=== PATIENT | female | born 1985 | race Caucasian/White ===

== ENCOUNTER → 2017-07-17 | Outpatient (CLI) | payer OTHER ==
[2015-11-09 16:17] VITALS: BP 128/84
[~2017-07-17] MED LIST: CYAN10002 IM; CYCL5TAB PO; DILT30TA PO; DOXY100T PO; GABA-586 PO; HYDR-2758 PO; HYDR200T71 PO; IBUP800T19 PO; IVAB5TAB PO; MELO15TA23 PO; NITR4.1S TL; ONDA4TAB12 PO
--- NOTE | 2017-07-17 12:20 | RAD ---
DATE: 07/17/2017 EXAM: MAMMO KENJI HUBBARD, BREAST LEFT HISTORY: Left breast lump COMPARISON: 05/12/2016 This study was interpreted with the benefit of Computerized Aided Detection (CAD). The breast parenchyma shows scattered fibroglandular densities. Breast parenchyma level B. FINDINGS: 2-D routine and implant exclusion views were obtained in CC and MLO projections. 3-D implant exclusion views were also obtained. Bilateral breast implants are again noted. No new or enlarging breast densities are seen. BBs were placed over the areas of reported palpable concern at the 12:00 location in the left breast and no underlying mammographic abnormality is seen. Benign type calcifications are present. No suspicious microcalcifications have developed. Left breast ultrasound, 07/17/2017: A targeted ultrasound exam was performed of the areas of palpable concern near the 12:00 location. Heterogeneous fibroglandular shadows are present. No mass is identified. IMPRESSION: 1. There is no mammographic evidence of malignancy in either breast. 2. There is no sonographic correlate for the areas of reported palpable concern. Clinical surveillance is suggested. BI-RADS CATEGORY: 1 NEGATIVE RECOMMENDED FOLLOW-UP: CLIN FOLLOW UP IMAGING CLINICALLY INDICATED PQRS compliance statement: Patient information was entered into a reminder system with a target due date for the next mammogram. Mammography is a sensitive method for finding small breast cancers, but it does not detect them all and is not a substitute for careful clinical examination. A negative mammogram does not negate a clinically suspicious finding and should not result in delay in biopsying a clinically suspicious abnormality. "Our facility is accredited by the [employer] Mammography Program."
== END | disposition home or self-care (01) ==
LOC: MAMMO 08:32
PROVIDERS: ATTEND Nurse Practitioner Family
DX: R92.8 Other abnormal and inconclusive findings on diagnostic imaging of breast (principal)
CPT/HCPCS: 76641; 77066; G0279; 77062

== ENCOUNTER → 2017-10-01 | Outpatient (CLI) | payer OTHER ==
[2015-11-09 16:17] VITALS: BP 128/84
[~2017-10-01] MED LIST changes: +IOHEXOL 240 MG/ML 50ML VIAL. ONE; +IOHEXOL 240 MG/ML 50ML VIAL. PO ONE; +IOHEXOL 300 MG/ML 75 ML VIAL. IV ONE; -NITR4.1S TL; +NITR4.1S2 TL
--- NOTE | 2017-10-01 10:24 | RAD ---
PQRS Compliance Statement: One or more of the following individualized dose reduction techniques were utilized for this examination: 1. Automated exposure control 2. Adjustment of the mA and/or kV according to patient size 3. Use of iterative reconstruction technique CT ABD PELV W/ORAL IV CONTRAST Clinical Indication: LLQ PAIN, HX OF DIVERTICULITIS AND LUPUS Comparison: CT abdomen and pelvis without contrast, December 17, 2014. Technique: Helical CT imaging of the abdomen and pelvis is performed after 75 cc Omnipaque 300 IV contrast. Oral contrast also given. Findings: There are bilateral breast implants, partially seen. Cardiac size is normal. Lungs are clear. Liver, gallbladder, spleen, pancreas, adrenal glands, abdominal aorta, and kidneys are normal. Stomach unremarkable. There is no dilated small bowel. There is diverticulitis of the distal descending colon. There is no perforation or peridiverticular abscess. There is moderate surrounding inflammation. There is diverticulosis throughout the colon. The appendix is normal. There is no colon wall thickening. No abdominal adenopathy or free fluid. Urinary bladder is normal. Hysterectomy. Trace pelvic free fluid. Bones unremarkable. IMPRESSION: 1. Diverticulitis of the distal descending colon. No perforation or peridiverticular abscess. 2. Trace pelvic free fluid. Electronically signed by: Ketan Fonseca MD (10/01/2017 10:20 AM) [id number]
== END | disposition home or self-care (01) ==
LOC: CT 08:43
PROVIDERS: ATTEND Nurse Practitioner Family
DX: K57.32 Diverticulitis of large intestine without perforation or abscess without bleeding (principal); N18.9 Chronic kidney disease, unspecified; I50.9 Heart failure, unspecified; E03.9 Hypothyroidism, unspecified; Z80.3 Family history of malignant neoplasm of breast; Z90.710 Acquired absence of both cervix and uterus; Z85.41 Personal history of malignant neoplasm of cervix uteri; Z85.89 Personal history of malignant neoplasm of other organs and systems
CPT/HCPCS: 74177; Q9966; Q9967

== ENCOUNTER → 2018-05-06 | Outpatient (CLI) | payer BC ==
[2015-11-09 16:17] VITALS: BP 128/84
[~2018-05-06] MED LIST changes: +HYDR-2155 PO; -HYDR-2758 PO; -IOHEXOL 240 MG/ML 50ML VIAL. PO ONE
--- NOTE | 2018-05-06 18:22 | RAD ---
PQRS Compliance statement: One or more of the following individualized dose reduction techniques were utilized for this examination: 1. Automated exposure control. 2. Adjustment of the mA and/or kV according to patient size. 3. Use of iterative reconstruction technique. Indication:INCREASINGLY WORSE ABDOMINAL PAIN WITH NAUSEA AND DIARRHEA. RECENT BOWEL RESECTION IN FEBRUARY DUE TO DIVERTICULITIS. ORAL AND 75MLS OMNI 300 IV CONTRAST TECHNIQUE: CT abdomen and pelvis with IV contrast with multiplanar reformats. COMPARISON: 10/01/2017 FINDINGS: Partially visualized bilateral breast implants. Heart is normal in size. No pericardial or pleural effusion. Clear lung bases. Liver, spleen, gallbladder, pancreas, adrenals and kidneys are normal limits. No enlarged retroperitoneal or pelvic adenopathy. No free pelvic fluid or ascites. Status post partial bowel resection with anastomotic sutures in the sigmoid colon. No bowel obstruction. Scattered colonic diverticulosis. Normal appendix. Status post hysterectomy. Urinary bladder is then normal limits. No pneumoperitoneum. No suspicious bony lesion. IMPRESSION: No bowel obstruction. Diffuse colonic diverticulosis without evidence right is. Electronically signed by: Adilson Garrison DO (05/06/2018 6:20 PM) [facility]
== END | disposition home or self-care (01) ==
LOC: CT 16:36
PROVIDERS: ATTEND Nurse Practitioner Family
DX: K57.30 Diverticulosis of large intestine without perforation or abscess without bleeding (principal); Z90.710 Acquired absence of both cervix and uterus; Z90.49 Acquired absence of other specified parts of digestive tract
CPT/HCPCS: 74177; Q9967

== ENCOUNTER 2020-08-14 22:44 | Emergency (ER) | payer BC ==
[~2020-08-14] VITALS: Ht 160 cm; Wt 90.9 kg
[~2020-08-14 22:44] MED LIST changes: -IOHEXOL 240 MG/ML 50ML VIAL. ONE; -IOHEXOL 300 MG/ML 75 ML VIAL. IV ONE
[2020-08-14 22:55] VITALS: BP 110/85
--- NOTE | 2020-08-14 22:58 | PHYS DOC ---
Past History Past Medical History: Cancer, Migraines, Other Past Surgical History: Hysterectomy Smoking: Non-smoker Alcohol Use: Rarely Drug Use: None General Adult EDM: Chief Complaint: FOOT INJURY PAIN HPI: HPI: ".. I slipped coming out of the shower.. jamed up this Rt. foot and little toe.." Patient is a 35 year old female who presents with above hx and stabbing type injury to right foot toe. Patient has obvious edema and contusion to right foot. Distal sensation is equal to the left foot. Capillary refill is equal to left foot. Patient denies other injury. Is stable health.. Follow-up of primary care. No recent travel. No specific ill contacts. Review of Systems: Review of Systems: Constitutional: Denies fever or chills Eyes: Denies change in visual acuity HENT: Denies nasal congestion or sore throat Respiratory: Denies cough or shortness of breath Cardiovascular: Denies chest pain or edema GI: Denies abdominal pain, nausea, vomiting, bloody stools or diarrhea : Denies dysuria Musculoskeletal: Complains of injury to right foot and fifth little toe Integument: Denies rash Neurologic: Denies headache, focal weakness or sensory changes Endocrine: Denies polyuria or polydipsia Lymphatic: Denies swollen glands Psychiatric: Denies depression or anxiety Family History: Family History: Noncontributory presentation Current Medications: Current Meds: See nursing for home meds Allergies: Allergies: Allergies Coded Allergies Type Severity Reaction Last Updated Verified cephalexin Allergy Unknown 10/22/15 No Physical Exam: PE: Constitutional: In acute distress, non-toxic appearance. [] HENT: Normocephalic, atraumatic, bilateral external ears normal, oropharynx moist, no oral exudates, nose normal. [] Eyes: PERRLA, EOMI, conjunctiva normal, no discharge. [] Neck: Normal range of motion, no tenderness, supple, no stridor. [] Cardiovascular:Heart rate regular rhythm, no murmur [] Lungs & Thorax: Bilateral breath sounds to apex with a few crackles and wheezes on auscultation [] Abdomen: Bowel sounds normal, soft, no tenderness, no masses, no pulsatile masses. Obese Skin: Warm, dry, no erythema, no rash. [] Back: No tenderness, no CVA tenderness. [] Extremities: No tenderness, no cyanosis, no clubbing, ROM intact, no edema. Except findings in right foot and fifth toe Neurologic: Alert and oriented X 3, has distal motor, decreased plantar sensory, no focal deficits noted. [] Psychologic: Affect anxious, judgement normal, mood normal. [] EKG: EKG: [] Radiology/Procedures: Radiology/Procedures: [][address] [address] IMAGING REPORT Signed PATIENT: MAKAYLA DOAN ACCOUNT: [id number] : 1985 LOCATION: ER AGE: 35 SEX: F EXAM STATUS: REG ER ORD. PHYSICIAN: MY ALMARAZ MD REASON: slipped, fall in shower, right foot and ankle pain PROCEDURE: FOOT RIGHT 3V EXAM: AP, oblique and lateral views right ankle AP, oblique and lateral views right foot DATE: 08/14/2020 11:07 PM INDICATION: Reason: slipped, fall in shower, right foot and ankle pain / Spl. Instructions: / History: . COMPARISON: No Prior FINDINGS/ IMPRESSION: Transverse fracture through the proximal phalanx right small toe is minimally displaced. No acute fracture or dislocation at the right ankle. Ankle mortise is congruent. Talar dome is intact. Calcaneal enthesophytes are seen. Electronically signed by: Jude Pina MD (08/14/2020 11:24 PM) [facility] DICTATED AND SIGNED BY: JUDE PINA MD DATE: 08/14/20 8537 CC: MY ALMARAZ MD; PCP,UNKNOWN ~MTH0 0 Heart Score: C/O Chest Pain: N/A Risk Factors: Risk Factors: DM, Current or recent (<one month) smoker, HTN, HLP, family history of CAD, obesity. Risk Scores: Score 0 - 3: 2.5% MACE over next 6 weeks - Discharge Home Score 4 - 6: 20.3% MACE over next 6 weeks - Admit for Clinical Observation Score 7 - 10: 72.7% MACE over next 6 weeks - Early Invasive Strategies Course & Med Decision Making: Course & Med Decision Making Pertinent Labs and Imaging studies reviewed. (See chart for details) Toes were bipin taped. Patient use ice packs as needed. Elevate foot. Follow- up primary care. Consider repeat x-ray in 2 weeks if no improvement. Follow-up essential. Patient take Tylenol and ibuprofen for pain. Patient return if any concerns. Impression: 1. Foot Contusion 2. Fx Rt.5thToe [] Karan Disclaimer: Karan Disclaimer: This electronic medical record was generated, in whole or in part, using a voice recognition dictation system. Departure Departure: Referrals: PCP,UNKNOWN (PCP) MY ALMARAZ MD Aug 14, 2020 22:58
--- NOTE | 2020-08-14 23:26 | RAD ---
EXAM: AP, oblique and lateral views right ankle AP, oblique and lateral views right foot DATE: 08/14/2020 11:07 PM INDICATION: Reason: slipped, fall in shower, right foot and ankle pain / Spl. Instructions: / Histor y: . COMPARISON: No Prior FINDINGS/ IMPRESSION: Transverse fracture through the proximal phalanx right small toe is minimally displaced. No acute fracture or dislocation at the right ankle. Ankle mortise is congruent. Talar dome is intact. Calcaneal enthesophytes are seen. Electronically signed by: Jude Pina MD (08/14/2020 11:24 PM) [facility]
[2020-08-14] MEDS ORDERED: TETANUS AND DIPHTHERIA TOX/PF 0.5 ML VIAL. VAX IM ONE (23:30)
[2020-08-14] MEDS ORDERED: BACITRACIN ZINC TOPICAL OINT PACKET. TP ONE (23:30)
[2020-08-15] MEDS ORDERED: FAMOTIDINE 20 MG/2 ML VIAL ONE (00:37)
[2020-08-15] MEDS ORDERED: TETANUS AND DIPHTHERIA TOX/PF 0.5 ML VIAL. VAX IM ONE (00:45)
[2020-08-15] MEDS ORDERED: DIPH,PERTUSS(ACELL),TET VAC/PF 0.5 ML SYRINGE. VAX IM ONE (01:00)
== END 2020-08-15 00:55 | disposition home or self-care (01) ==
LOC: ER 22:44
DX: S92.511A Displaced fracture of proximal phalanx of right lesser toe(s), initial encounter for closed fracture (principal); G43.909 Migraine, unspecified, not intractable, without status migrainosus; Z88.1 Allergy status to other antibiotic agents; W18.2XXA Fall in (into) shower or empty bathtub, initial encounter; Y93.89 Activity, other specified; Y92.89 Other specified places as the place of occurrence of the external cause; Y99.8 Other external cause status
CPT/HCPCS: 73610; 73630; 99284

== ENCOUNTER 2021-01-23 16:45 | Emergency (ER) | payer BC ==
[~2021-01-23] VITALS: Ht 160 cm; Wt 88.6 kg
[2021-01-23] MEDS ORDERED: IV NORMAL SALINE 1,000ML 1,000 ML IV SCH (17:30)
[2021-01-23] MEDS ORDERED: ONDANSETRON PF 4 MG/2 ML VIAL. IVP ONE (17:30)
--- NOTE | 2021-01-23 17:33 | PHYS DOC ---
Past History Past Medical History: Cancer, Migraines, Other Additional Past Medical Histor: Lupus, Hashimotos, cervical cancer (ALFONSO NEWMAN DO) Past Surgical History: Hysterectomy Additional Past Surgical Histo: breast lift/implants, ankle sx, colectomy (ALFONSO NEWMAN DO) Smoking: Non-smoker Alcohol Use: Rarely Drug Use: None (ALFONSO NEWMAN DO) Adult General Chief Complaint Chief Complaint: ABDOMINAL PAIN HPI HPI Patient is a 35-year-old female presenting for generalized abdominal pain. Onset was this morning at 5 AM without any known inciting event, trauma, ingestion, major change in health or home medication, sick contact or travel. Nothing known makes better or worse. Patient reports generalized abdominal pain that is more midline and radiates to her back. Timing of symptoms has been constant and worsening since onset. States she has history of diverticulosis and has had prior surgical intervention for this due to episodes of diverticulitis without any other known intra-abdominal abnormalities. No adnexal/ surgeries. Patient does admit complicated history for which she is on Ozempic for weight loss and lupus. She is concern for potential pancreatitis due to recently starting Ozempic as this is a known side effect. She denies any tobacco alcohol or illicit drug use, no pertinent family medical history noted (ALFONSO NEWMAN DO) Review of Systems Review of Systems Fourteen body systems of review of systems have been reviewed. See HPI for pertinent positives and negative responses, other walker all other systems are negative, non-pertinent or non-contributory (ALFONSO NEWMAN DO) Allergies Allergies Allergies Coded Allergies Type Severity Reaction Last Updated Verified cephalexin Allergy Unknown 10/22/15 No (ALFONSO NEWMAN DO) Physical Exam Physical Exam Constitutional: Age-appropriate, well-nourished, appears in moderate distress due to pain but overall nontoxic in overall appearance HENT: Normocephalic, atraumatic, bilateral external ears normal, oropharynx moist, no oral exudates, nose normal. Eyes: PERRLA, EOMI, conjunctiva normal, no discharge. Neck: Normal range of motion, no tenderness, supple, no stridor. Cardiovascular: Heart rate regular, sinus rhythm, no murmurs rubs or gallops Lungs & Thorax: Bilateral breath sounds clear to auscultation Abdomen: Bowel sounds normal, soft, generalized abdominal pain with palpation most focal around umbilical area without guarding or rebound, no masses, no pulsatile masses. Nonsurgical abdomen, no peritoneal signs Skin: Warm, dry, no erythema, no rash. Back: No tenderness, no CVA tenderness. Extremities: No tenderness, no cyanosis, no clubbing, ROM intact, no edema. Neurologic: Alert and oriented X 3, grossly normal motor & sensory function, no focal deficits noted. Psychologic: Affect normal, judgement normal, mood normal. (ALFONSO NEWMAN DO) Current Patient Data Vital Signs Vital Signs Date Time Temp Pulse Resp B/P (MAP) Pulse Ox O2 Delivery O2 Flow Rate FiO2 01/23/21 17:20 99.0 90 18 136/64 (88) 98 Room Air (ALFONSO NEWMAN DO) EKG EKG Interpreted by myself at 1804 hrs. as sinus rhythm at 92 bpm, unremarkable intervals, no axis deviation, no acute ischemic findings, no STEMI (ALFONSO NEWMAN DO) Radiology/Procedures Radiology/Procedures [] (ALFONSO NEWMAN DO) Heart Score C/O Chest Pain: No HEART Score for Chest Pain: HEART Score for Chest Pain Response (Comments) Value History Slighlty/Non-Suspicious 0 ECG Normal 0 Age < 45 0 Risk Factors No Risk Factors 0 Total 0 Risk Factors: Risk Factors: DM, Current or recent (<one month) smoker, HTN, HLP, family history of CAD, obesity. Risk Scores: Risk Factors: DM, Current or recent (<one month) smoker, HTN, HLP, family history of CAD, obesity. (ALFONSO NEWMAN DO) Course & Med Decision Making Course & Med Decision Making ABCs unremarkable HPI physical exam and initial ER work-up started Abdominal pain in a patient with a nonacute abdomen concerning for diverticulitis versus pancreatitis versus biliary tree pathology. Less likely SMA based on history At this time in care, patient still pending imaging studies. Comprehensive signout given to oncoming physician. Please defer to Dr. Naik's documentation regarding future care of patient while in ER setting (ALFONSO NEWMAN DO) Course & Med Decision Making Patient care handed off to me at checkout pending imaging. Patient alert and oriented in no acute distress, pain controlled, nausea controlled. Imaging showing some colonic wall thickening consistent with chronic inflammation, suggestive of some colitis. Patient's vital signs normal. Laboratory analysis not concerning. Discussed all findings with patient and family. Advised a course of antibiotics, pain and nausea medicine at home and follow-up first thing in the morning with primary care physician. Gave strict return precautions to the ED. Patient grateful, verbalized understanding and agreed with plan of discharge. (JESSICA NAIK MD) Karan Disclaimer Dragon Disclaimer This electronic medical record was generated, in whole or in part, using a voice recognition dictation system. (ALFONSO NEWMAN DO) Departure Departure: Impression: Primary Impression: Colitis Disposition: HOME / SELF CARE / HOMELESS Condition: IMPROVED Referrals: NON,STAFF (PCP) JULIO CÉSAR JACOBSON Patient Instructions: Colitis Additional Instructions: Thank you for coming into the emergency department tonight and allowing us to take care of you. Please read the attached information carefully to go back over some of the things we discussed. Please be sure to eat a light clear diet over the next couple of days, eating nothing heavy and drinking plenty of fluids. Please take your antibiotics, nausea medicine and pain medicine as prescribed and as needed. It is very important that you follow-up in the morning first thing with your primary care physician to update on your ED visit and set up a follow-up as soon as possible. Please come back to the ED with new or concerning symptoms as discussed. Scripts Ondansetron Hcl (ZOFRAN) 4 Mg Tablet 1 TAB PO PRN Q6HRS PRN for NAUSEA, #12 TAB Prov: JESSICA NAIK MD 01/23/21 Hydrocodone Bit/Acetaminophen (HYDROCODONE-APAP 5-325 ) 1 Each Tablet 1 TAB PO PRN Q6HRS PRN for PAIN for 3 Days, #12 TAB 0 Refills Prov: JESSICA NAIK MD 01/23/21 Amoxicillin/Potassium Clav (AUGMENTIN 875-125 TABLET) 1 Each Tablet 1 TAB PO BID for colitis for 10 Days, #19 TAB 0 Refills Prov: JESSICA NAIK MD 01/23/21 ALFONSO NEWMAN DO Jan 23, 2021 17:33 JESSICA NAIK MD Jan 23, 2021 19:59
[2021-01-23] MEDS ORDERED: IOHEXOL 300 MG/ML 75 ML VIAL. IV ONE (17:45)
[2021-01-23 17:53] LABS: BACTERIA,URINE MOD /HPF (0-FEW); BILIRUBIN,URINE SMALL (NEG); CLARITY,URINE CLEAR; COLOR,URINE YELLOW; GLUCOSE,URINE NEG (NEG); NITRITE,URINE NEG (NEG); UROBILINOGEN,URINE 0.2 mg/dL (0.2 mg/dL)
[2021-01-23 17:54] LABS: SQUAMOUS EPITHELIAL CELL,UR MANY /LPF
[2021-01-23 18:03] LABS: BASO # 0.1 x10^3/uL (0.0-0.2); BASO % 1 % (0-3); EOS % 0 % (0-3); HEMATOCRIT 41.5 % (36.0-47.0); HEMOGLOBIN 13.9 g/dL (12.0-15.5); LYMPH # 1.3 x10^3/uL (1.0-4.8); LYMPH % 11 % (24-48); MEAN CORPUSCULAR HEMOGLOBIN 30 pg (25-35); MEAN CORPUSCULAR HGB CONC 34 g/dL (31-37); MEAN CORPUSCULAR VOLUME 88 fL (79-100); MONO # 0.4 x10^3/uL (0.0-1.1); MONO % 4 % (0-9); NEUT # 9.2 x10^3uL (1.8-7.7); NEUT % 83 % (31-73); PLATELET COUNT 275 x10^3/uL (140-400); RED CELL DISTRIBUTION WIDTH 14.5 % (11.5-14.5)
--- NOTE | 2021-01-23 18:04 | EKG ---
[address] [address] Test Date: 2021-01-23 Test Time: 17:58:00 Pat Name: MAKAYLA DOAN Department: Room: Gender: F Press Leader: MEERA : 1985 Requested By: ALFONSO NEWMAN Order Number: [id number] Reading MD: Terrell Espinoza Measurements Intervals [place] Rate: 92 P: 0 LA: 124 QRS: 17 QRSD: 98 T: 16 QT: 362 QTc: 453 Interpretive Statements SINUS RHYTHM INCOMPLETE RIGHT BUNDLE BRANCH BLOCK Electronically Signed On 01-27-2021 9:27:07 CHAIN TESTING MACHINE OPERATOR by Terrell Espinoza
[2021-01-23 18:54] LABS: CALCIUM 8.9 mg/dL (8.5-10.1); CREATININE 0.7 mg/dL (0.6-1.0); GFR 94.2; POTASSIUM 3.8 mmol/L (3.5-5.1)
[2021-01-23 19:00] LABS: ALBUMIN 3.7 g/dL (3.4-5.0); ALBUMIN/GLOBULIN RATIO 1.5 (1.0-1.7); TOTAL BILIRUBIN 0.4 mg/dL (0.2-1.0); TOTAL PROTEIN 6.2 g/dL (6.4-8.2)
--- NOTE | 2021-01-23 19:18 | RAD ---
EXAM: CT ABDOMEN/PELVIS WITH CONTRAST. HISTORY: Abdominal pain, pancreatitis, diverticulitis. TECHNIQUE: Computed tomography of the abdomen and pelvis was performed after the intravenous administ ration of iodinated contrast. One or more of the following individualized dose reduction techniques w ere utilized for this examination: 1. Automated exposure control. 2. Adjustment of the mA and/or kV according to patient size. 3. Use of iterative reconstruction technique. COMPARISON: 04/28/2018. FINDINGS: Lung windows through the visualized portions of the bases reveal mild atelectasis. Bone win dows reveal no suspicious lesions. Bilateral breast implants are noted. The liver, gallbladder, pancreas, adrenal glands, and kidneys are unremarkable. The spleen is mildly enlarged at 14.1 cm. There are no pathologically enlarged lymph nodes. The uterus is surgically absen t. There is an anastomotic suture line along the sigmoid colon. There is diffuse colonic wall thickening and fatty infiltration of the colonic wall consistent with chronic inflammation. The appendix is not inflamed. There is no small bowel wall thickening or obstruction. IMPRESSION: 1. Colonic wall thickening and mural fatty infiltration is consistent with chronic inflammation. Zack perez for causes of diffuse colitis. Electronically signed by: Annelise Fox MD (01/23/2021 7:16 PM) [facility]
[2021-01-23] MEDS ORDERED: HYDR-2155 PO (19:58)
[2021-01-23] MEDS ORDERED: AMOX1TAB61 PO (19:58)
[2021-01-23] MEDS ORDERED: ONDA4TAB7 PO (19:58)
[2021-01-23] MEDS ORDERED: CIPROFLOXACIN HCL 500 MG TABLET PO ONE (20:00)
[2021-01-23] MEDS ORDERED: ONDANSETRON 4MG ODT 4TABLET STARTPACK. PO ONE (20:00)
[2021-01-23] MEDS ORDERED: MORPHINE SULFATE 4 MG/ML DISP.SYRIN. IV ONE (20:00)
[2021-01-23] MEDS ORDERED: METOCLOPRAMIDE HCL 10 MG/2 ML VIAL. IVP ONE (20:00)
[2021-01-23] MEDS ORDERED: metroNIDAZOLE 500 MG TABLET PO ONE (20:00)
[2021-01-23] MEDS ORDERED: AMOXICILLIN/K CLAV 875/125MG TABLET. PO ONE (20:00)
[2021-01-23 20:24] VITALS: BP 133/70
== END 2021-01-23 20:25 | disposition home or self-care (01) ==
LOC: ER 16:45
DX: K52.9 Noninfective gastroenteritis and colitis, unspecified (principal); G43.909 Migraine, unspecified, not intractable, without status migrainosus; Z90.710 Acquired absence of both cervix and uterus; Z88.1 Allergy status to other antibiotic agents
CPT/HCPCS: 36415; 74177; 80053; 81001; 83690; 84484; 85025; 87086; 93005; 96361; 96374; 96375; 96376; 99285; J2270; J2405; J2765; J3010; J7030; Q9967

== ENCOUNTER 2021-05-17 18:09 | Emergency (ER) | payer BC, OTHER ==
[~2021-05-17] VITALS: Ht 160 cm; Wt 88.6 kg
[~2021-05-17 18:09] MED LIST changes: +AMOX1TAB61 PO; +ONDA4TAB7 PO
--- NOTE | 2021-05-17 20:19 | PHYS DOC ---
Past History Past Medical History: Cancer, Migraines, Other Additional Past Medical Histor: Lupus, Hashimotos, cervical cancer Past Surgical History: Hysterectomy Additional Past Surgical Histo: breast lift/implants, ankle sx, colectomy Smoking: Non-smoker Alcohol Use: Occasionally Drug Use: None General Adult EDM: Chief Complaint: MECHANICAL FALL HPI: HPI: ".. I had a slip and fall.. I tried to catch myself .. with my Lt arm.. and now I am worried I broke it..." Patient is a 35 year old female who presents with above hx and complaints of fall. Patient complains of injury to left wrist and shoulder. Patient does complain of numbness in her index middle and ring finger of left hand. Patient is left-hand dominant. Has obvious edema to the wrist area. Any movement exacerbates pain. Does have some pain in the left deltoid and shoulder. Does have sensation in deltoid. Patient denies other injury in the fall. Patient normally follows with Dr. Lambert at [place]. Patient has past medical history of cervical cancer, migraines, arthritis. Patient has had previous surgery of hysterectomy. Patient last seen in the ER and 08/14/2020 after fall in shower. Review of Systems: Review of Systems: Constitutional: Denies fever or chills Eyes: Denies change in visual acuity HENT: Denies nasal congestion or sore throat Respiratory: Denies cough or shortness of breath Cardiovascular: Denies chest pain or edema GI: Denies abdominal pain, nausea, vomiting, bloody stools or diarrhea : Denies dysuria Musculoskeletal: Complains of left hand wrist and shoulder injury and trip and fall. Integument: Denies rash Neurologic: Denies headache, focal weakness or sensory changes Endocrine: Denies polyuria or polydipsia Lymphatic: Denies swollen glands Psychiatric: Denies depression or anxiety Family History: Family History: Noncontributory to presentation Current Medications: Current Meds: See nursing for home meds Allergies: Allergies: Allergies Coded Allergies Type Severity Reaction Last Updated Verified cephalexin Allergy Unknown 10/22/15 No Physical Exam: PE: Constitutional: In acute distress, non-toxic appearance. [] HENT: Normocephalic, atraumatic, bilateral external ears normal, oropharynx moist, no oral exudates, nose normal. [] Eyes: PERRLA, EOMI, conjunctiva normal, no discharge. [Glasses Neck: Normal range of motion, no tenderness, supple, no stridor. [] Cardiovascular:Heart rate regular rhythm, no murmur [] Lungs & Thorax: Bilateral breath sounds equal apex auscultation [] Abdomen: Bowel sounds normal, soft, no tenderness, no masses, no pulsatile masses. Old surgery scar Skin: Warm, dry, no erythema, no rash. [] Back: No tenderness, no CVA tenderness. [] Extremities: No tenderness, no cyanosis, no clubbing, ROM intact, no edema. [Except findings of the left hand and wrist edema. Some pain in left shoulder does have sensation left deltoid. Neurologic: Alert and oriented X 3, normal motor function, normal sensory function, no focal deficits noted. [] Psychologic: Affect anxious, judgement normal, mood normal. [] EKG: EKG: [] Radiology/Procedures: Radiology/Procedures: [address] [address] IMAGING REPORT Signed PATIENT: MAKAYLA DOAN ACCOUNT: [id number] : 1985 LOCATION: ER AGE: 35 SEX: F EXAM STATUS: REG ER ORD. PHYSICIAN: MY ALMARAZ MD REASON: FALL, PAIN PROCEDURE: SHOULDER 2+V LEFT XR SHOULDER_LEFT 2+ VIEWS History: Reason: FALL, PAIN / Spl. Instructions: / History: Technique: 3 views left shoulder Comparison: None. Findings: No dislocation. No acute fracture. Impression: 1. No acute osseous abnormality. Electronically signed by: Joby Dawn DO (05/17/2021 11:01 PM) [facility] DICTATED AND SIGNED BY: JOBY DAWN DO DATE: 05/17/21 230 CC: MY ALMARAZ MD; NON,STAFF ~MTH0 [address] [address] IMAGING REPORT Signed PATIENT: MAKAYLA DOAN ACCOUNT: [id number] : 1985 LOCATION: ER AGE: 35 SEX: F EXAM STATUS: REG ER ORD. PHYSICIAN: MY ALMARAZ MD REASON: FALL, PAIN PROCEDURE: CHEST AP ONLY XR CHEST 1V History: Reason: FALL, PAIN / Spl. Instructions: / History: Comparison: None. Findings: No consolidation or pleural effusion. Normal heart size. No pneumothorax. Impression: 1. No acute cardiopulmonary process. Electronically signed by: Joby Dawn DO (05/17/2021 10:58 PM) [facility] [place] DICTATED AND SIGNED BY: JOBY DAWN DO DATE: 05/17/212256 CC: MY ALMARAZ MD; NON,STAFF ~MTH0 0 [][place] [id number] IMAGING REPORT Signed PATIENT: MAKAYLA DOAN ACCOUNT: [id number] : 1985 LOCATION: ER AGE: 35 SEX: F EXAM STATUS: REG ER ORD. PHYSICIAN: MY ALMARAZ MD REASON: FALL, PAIN PROCEDURE: FOREARM LEFT XR LT WRIST 3VIEWS, XR FOREARM_LEFT 2 VIEWS History: Reason: FALL, PAIN / Spl. Instructions: / History: Technique: 3 views left wrist and 2 views left forearm Comparison: None. Findings: Acute comminuted intra-articular left distal radius fracture with slight dorsal angulation. No additional fracture. No dislocation. Impression: 1. Acute comminuted intra-articular left distal radial fracture. Electronically signed by: Joby Dawn DO (05/17/2021 11:01 PM) [facility] DI[facility]ATED AND SIGNED BY: JOBY DAWN DO DATE: 05/17/212258 CC: MY ALMARAZ MD; NON,STAFF ~MTH0 0 Heart Score: C/O Chest Pain: N/A Risk Factors: Risk Factors: DM, Current or recent (<one month) smoker, HTN, HLP, family history of CAD, obesity. Risk Scores: Score 0 - 3: 2.5% MACE over next 6 weeks - Discharge Home Score 4 - 6: 20.3% MACE over next 6 weeks - Admit for Clinical Observation Score 7 - 10: 72.7% MACE over next 6 weeks - Early Invasive Strategies Course & Med Decision Making: Course & Med Decision Making Pertinent Labs and Imaging studies reviewed. (See chart for details) Patient keep splint on and elevate above heart. Work splint until follow-up. Monitor for circulation. Currently circulation intact distally and neurovascular intact distally after application of splint. Follow-up orthopedics. Return if any concerns. Tylenol and ibuprofen for pain. Ice packs as needed. Impression: 1. Trip and Fall 2. Lt Wrist 3. Lt shoulder [] Dragon Disclaimer: Dragon Disclaimer: This electronic medical record was generated, in whole or in part, using a voice recognition dictation system. Departure Departure: Referrals: NON,STAFF (PCP) Scripts Hydrocodone/Ibuprofen (HYDROCODONE-IBUPROFEN 7.5-200 ) 1 Each Tablet 1 TAB PO PRN Q6HRS PRN for PAIN, #30 TAB 0 Refills Prov: MY ALMARAZ MD 05/18/21 Karan Disclaimer This chart was dictated in whole or in part using Voice Recognition software in a busy, high-work load, and often noisy Emergency Department environment. It may contain unintended and wholly unrecognized errors or omissions. MY ALMARAZ MD May 17, 2021 20:19
[2021-05-17] MEDS: oxyCODONE/APAP 5/325 1 TAB TABLET PO ONE ×2 (20:55→20:58)
[2021-05-17] MEDS: ONDANSETRON ODT 4 MG TAB.RAPDIS PO ONE (20:56)
--- NOTE | 2021-05-17 23:00 | RAD ---
XR CHEST 1V History: Reason: FALL, PAIN / Spl. Instructions: / History: Comparison: None. Findings: No consolidation or pleural effusion. Normal heart size. No pneumothorax. Impression: 1. No acute cardiopulmonary process. Electronically signed by: Joby Dawn DO (05/17/2021 10:58 PM) [facility]
--- NOTE | 2021-05-17 23:03 | RAD ---
XR LT WRIST 3VIEWS, XR FOREARM_LEFT 2 VIEWS History: Reason: FALL, PAIN / Spl. Instructions: / History: Technique: 3 views left wrist and 2 views left forearm Comparison: None. Findings: Acute comminuted intra-articular left distal radius fracture with slight dorsal angulation. No additi onal fracture. No dislocation. Impression: 1. Acute comminuted intra-articular left distal radial fracture. Electronically signed by: Joby Dawn DO (05/17/2021 11:01 PM) [facility]
--- NOTE | 2021-05-17 23:04 | RAD ---
XR SHOULDER_LEFT 2+ VIEWS History: Reason: FALL, PAIN / Spl. Instructions: / History: Technique: 3 views left shoulder Comparison: None. Findings: No dislocation. No acute fracture. Impression: 1. No acute osseous abnormality. Electronically signed by: Joby Dawn DO (05/17/2021 11:01 PM) [facility]
[2021-05-18] MEDS: MORPHINE SULFATE 10 MG/ML SYRINGE. SQ ONE (00:30)
[2021-05-18 01:00] VITALS: BP 124/76
[2021-05-18] MEDS ORDERED: HYDR-1179 PO (01:03)
== END 2021-05-18 01:10 | disposition home or self-care (01) ==
LOC: ER 18:09
DX: S52.502A Unspecified fracture of the lower end of left radius, initial encounter for closed fracture (principal); S49.92XA Unspecified injury of left shoulder and upper arm, initial encounter; G43.909 Migraine, unspecified, not intractable, without status migrainosus; Z88.1 Allergy status to other antibiotic agents; W01.0XXA Fall on same level from slipping, tripping and stumbling without subsequent striking against object, initial encounter; Y93.89 Activity, other specified; Y92.89 Other specified places as the place of occurrence of the external cause; Y99.8 Other external cause status
CPT/HCPCS: 29125; 71045; 73030; 73090; 73110; 96372; 99284; J2270; Q0162